=== PATIENT | female | born 1980 | race Caucasian/White ===

== ENCOUNTER 2018-08-30 08:00 | Outpatient (CLI) | payer BC ==
[2018-08-30 08:51] LABS: BHCG - Serum Negative (NEGATIVE); Pregs Control Background? CLEAR/WHITE (CLR/WHITE); Pregs Control Bar Appear? YES (CONTROL BAR)
[2018-08-30 09:05] LABS: #Eosinphils 0.3 thou/uL (0.0-0.7); #Lymphocytes 1.2 thou/uL (1.20-3.40); #Monocytes 0.4 thou/uL (0.11-0.59); #Neutrophils 2.7 thou/uL (1.40-6.50); %Basophils 0.9 % (0.0-1.0); %Eosinophils 7.1 % (0.0-10.0); %Lymphocytes 26.3 % (21.0-51.0); %Monocytes 7.6 % (0.0-10.0); %Neutrophils 58.1 % (42.0-75.0); Hemoglobin 12.8 g/dL (12.0-16.0); Mean Corpuscular Hemoglobin 28.5 pg (27.0-31.0); Mean Corpuscular Volume 89.3 fL (78.0-98.0); Mean Platelet Volume 7.7 fL (7.4-10.4); Platelet Count 224 thou/uL (130-400); RBC Distribution Width 12.4 % (11.5-14.5); White Blood Cell (WBC) Count 4.6 thou/uL (4.8-10.8)
== END 2018-08-30 08:01 | disposition home or self-care (01) ==
LOC: LABBT 08:00
PROVIDERS: ATTEND Surgery
DX: Z01.812 Encounter for preprocedural laboratory examination (principal); N80.8 Other endometriosis
CPT/HCPCS: 84703; 85025

== ENCOUNTER 2018-09-05 06:07 | Day surgery (SDC) | payer BC ==
[2018-08-30 08:30] VITALS: BMI 24.0
[2018-09-05] MEDS ORDERED: Midazolam HCl 2 mg/2 ml Vial ONE (06:11)
[2018-09-05] MEDS ORDERED: Fentanyl 100 MCG/2 ML VIAL ONE ×3 (06:11→08:41)
[2018-09-05] MEDS ORDERED: Scopolamine 1.5 mg/72 hour Patch ONE (06:45)
[2018-09-05] MEDS ORDERED: Propofol 500 MG/50 ML VIAL ONE (06:50)
[2018-09-05] MEDS ORDERED: Bupivacaine HCl 0.5%/Epinephrine 1:200,000/PF 30 ml Vial ONE (07:04)
[2018-09-05] MEDS ORDERED: Lidocaine 2% PF 5 ML VIAL ONE (07:04)
[2018-09-05] MEDS ORDERED: Meperidine HCl/PF 25 MG/ML VIAL ONE (08:41)
[2018-09-05] MEDS ORDERED: Morphine 2 MG/ML SYRINGE ONE (09:34)
[2018-09-05] MEDS ORDERED: HYDROcodone/Acetaminophen 5/325 mg Tablet ONE (10:03)
--- NOTE | 2018-09-05 11:05 | OP ---
DATE OF PROCEDURE: 09/05/2018 PREOPERATIVE DIAGNOSIS: Right inguinal mass. PROCEDURE PERFORMED: Excisional biopsy. INDICATIONS: A 38-year-old female, who has had a previous section, developed a painful mass in the right groin that gets worse with menstrual cycles. FINDINGS: About a 2.5 cm mass consistent with endometrioma. DESCRIPTION OF PROCEDURE: After informed consent was obtained, the patient was taken to the operating room and given general mask anesthesia, placed in supine position. Groin was prepped and draped in usual fashion. Local anesthesia infiltrated subcutaneously and deep transverse incision performed right inguinal area. The mass was excised sharply utilizing electrocautery, sent to Pathology for further analysis. Hemostasis achieved with electrocautery. There was one about a 2 cm area, where the fascia was incised from removal of it. This fascia was closed with a running 2-0 Vicryl. This was the external oblique fascia. Then, the subcu was irrigated. Subcu closed with interrupted 3-0 Vicryl, then the skin closed with a running subcuticular 4-0 Rapide. Sterile-strips applied. Sterile bandage applied. The patient tolerated the procedure well, transferred to Recovery in good condition. Sponge and needle count verified correct x2. Job ID: [id number]
[2018-09-05] MEDS ORDERED: Lidocaine 1% PF 5 ML VIAL ONE (12:11)
[2018-09-05] MEDS ORDERED: Ondansetron PF 4 MG/2 ML Vial ONE (12:11)
[2018-09-05] MEDS ORDERED: PROPOFOL 200 MG/20 ML VIAL ONE (12:11)
[2018-09-05] MEDS ORDERED: Succinylcholine Chloride 20 MG/ML 10 ml SYRINGE FS ONE (12:11)
[2018-09-05] MEDS ORDERED: Dexamethasone 20 MG/5 ML VIAL ONE (12:11)
== END 2018-09-05 10:28 | disposition home or self-care (01) ==
LOC: SDC 06:07
PROVIDERS: ATTEND Surgery
PROC: 0JBC0ZZ Excision of Pelvic Region Subcutaneous Tissue and Fascia, Open Approach (ICD-10-PCS; principal; 2018-09-05)
DX: N80.8 Other endometriosis (principal); F41.9 Anxiety disorder, unspecified; F42.9 Obsessive-compulsive disorder, unspecified; Z85.850 Personal history of malignant neoplasm of thyroid; Z79.899 Other long term (current) drug therapy; Z98.890 Other specified postprocedural states
CPT/HCPCS: 88305; J0670; J1100; J2001; J2175; J2250; J2270; J2405; J2704; J3010

== ENCOUNTER 2025-04-09 12:25 | Outpatient (CLI) | payer BC ==
[2025-04-09] MEDS ORDERED: Iopamidol-370 76% 500 ML BOT (X-RAY USE) FS ONE (12:45)
== END 2025-04-09 12:26 | disposition home or self-care (01) ==
LOC: RAD 12:25
PROVIDERS: ATTEND Urology
DX: N99.81 Other intraoperative complications of genitourinary system (principal); R93.41 Abnormal radiologic findings on diagnostic imaging of renal pelvis, ureter, or bladder
CPT/HCPCS: 51600; 74430; Q9967